=== PATIENT | female | born 2000 | race Caucasian/White ===

== ENCOUNTER 2023-11-04 21:45 | Emergency (ER) | payer OTHER, SELFPAY ==
[2023-11-04 21:50] VITALS: BP 117/80
[2023-11-04 22:33] LABS: COVID-19 Antigen Negative (Negative)
--- NOTE | 2023-11-05 01:06 | ED.GENMED ---
History of Present Illness
General
Chief Complaint: Eye Problems
Source: patient
Exam Limitations: none
Time Seen by Provider: 11/05/23 00:52
Travel History
Have you had any contact with someone who has COVID-19?: No
Do you have any symptoms of coronavirus? Fever > 100 degrees, chills, cough, shortness of breath, sore throat, loss of taste or smell, muscle aches, or headache?: No
History of Present Illness
History of Present Illness:
This is a 22 year old female that comes in with c/o sore throat and left eye redness. States that she started on Saturday with pink eye. States that she was given Polymyxin B-TMP eye drops. States that she has been using them for 2 days and it is
not helping. States that she also has a sore throat and feels like she is swallowing rocks. The sore throat started yesterday. States that she was also nauseated on Saturday. Denies any fever, chills, chest pain, SOB, abd pain, vomiting, diarrhea,
headache, dizziness, urinary burning.
Past History
Past History
ED Past Medical History: Asthma, Psychiatric (Anxiety, Depression. OCD, PTSD) and Other (IBS)
ED Past Surgical History: None
Social History
Tobacco: Non-smoker
Alcohol: None
Personal: Single
Living: with family
Review of Systems
Review of Systems
All Other Systems: ROS reviewed and negative except as documented in HPI and ROS
Constitutional: Reports no symptoms; Denies fever or chills
EENT: Reports sore throat and other (Left eye drainage and redness)
Respiratory: Reports no symptoms; Denies cough or trouble breathing
Cardiac: Reports no symptoms; Denies chest pain
ABD/GI: Reports no symptoms; Denies abdominal pain, nausea, vomiting or diarrhea
: Reports no symptoms; Denies dysuria, frequency or urgency
Musculoskeletal: Reports no symptoms
Skin: Reports no symptoms
Neurological: Reports no symptoms; Denies dizzy or headache
Psychiatric: Reports no symptoms
Phy Exam
General Physical Exam
General Presentation: no apparent distress
General age: appears stated age
General Skin: warm and dry
General Habitus: normal
General Mental: alert
General Hydration: appears well hydrated
ENT Exam
ENT Exam: TM's normal, pharynx normal (Negative for any redness or exudate) and neck supple
Eye Exam
Eye Exam: EOMI and other (Left sclera redness with drainage)
Cardiovascular Exam
Cardiovascular Exam: regular rate/rhythm, no murmur and normal peripheral pulses
Pulmonary Exam
Pulmonary Exam: lungs clear, no respiratory distress, no rales, chest non tender, no crackles, no rhonchi, no wheezing and no cough
Gastrointestinal Exam
Gastrointestinal Exam: normal bowel sounds, non tender, soft, no organomegaly, no pulsatile mass and non distended
Musculoskeletal Exam
Musculoskeletal Exam: full ROM and no edema
Skin Exam
Skin Exam: normal color, warm/dry, no rash and no petechia
Psychiatric Exam
Psychiatric Exam: normal mood/affect
Course
Orders/Labs/Results
Orders:
Orders
11/04/23 21:56
Rapid Strep Group A Urgent
[facility] Source: Throat/Pharynx
Specimen Description:
Date Specimen was Collected: 11/04/23
Time Specimen was Collected: 21:53
Throat Culture [Throat Culture, Comprehensive] Urgent
[facility] Source: Throat/Pharynx
Specimen Description:
Date Specimen was Collected: 11/04/23
Time Specimen was Collected: 21:53
11/04/23 21:57
COVID-19 Antigen Urgent
Source: Nasal Swab
11/04/23 21:58
Influenza A+B Rapid Molecular Urgent
[facility] Source: Nasal Swab
Specimen Description:
11/05/23 01:18
Gentamicin [Genoptic 0.3% Eye Drops] See Dose Instructions OPHTH NOW STA
COVID and influenza negative. Rapid strep negative.
Vital Signs
Initial and Last Documented VS:
Initial Vital Signs
Temp Pulse Resp BP Pulse Ox
98.3 F 99 18 117/80 99
11/04/23 21:50 11/04/23 21:50 11/04/23 21:50 11/04/23 21:50 11/04/23 21:50
Last Documented Vital Signs
Temp Pulse Resp BP Pulse Ox
98.3 F 99 18 117/80 99
11/04/23 21:50 11/04/23 21:50 11/04/23 21:50 11/04/23 21:50 11/04/23 21:50
MDM/Problems Addressed
Differential Diagnosis Includes:
Conjunctivitis. Strep throat. Viral syndrome
MDM/Problems Addressed:
This is a 22 year old female that comes in with c/o sore throat and left eye redness. States that she has been using Polymyxin B/TMP eye drops [id number] and her eye is not getting any better. States that she also has a sore throat.
Will get COVID, Influenza and rapid strep.
Chronic conditions affecting care:
NA
Acute Exacerbation and/or Progression of Chronic Illness:
NA
*Pulse Oximetry
Patient hypoxic: no
*EKG
Interpreted by ED Provider?: NA
Rate: EKG- N/A
*Nursery Technician Interpretation
Rate: Nursery Technician- N/A
*Critical Care Note
Total Time (30-74mins, 75-104mins- exclusive of procedures): Not Applicable
ED Attending Note
-
Portions of this chart may have been created with voice recognition software.� Occasional wrong word or��sound alike� substitutions may have occurred due to the inherent limitations of voice recognition software.
Discharge Plan
Departure
Patient Disposition: Home (Routine Discharge)
Date of Disposition: 11/05/23
Time of Disposition: 01:25
Patient with high blood pressure during this ER visit?: No
Condition: Good
Covid-19: Negative COVID-19
Discharge Problem:
Conjunctivitis, Acute sore throat
Instructions: Sore Throat, Adult (DC), Conjunctivitis (Pinkeye) (DC)
Prescriptions:
New
gentamicin 0.3 % drops
2 drp ophthalmic (eye) Q4H Qty: 10 0RF
Referrals:
Regine Subramanian CRNP [Family Provider] -
Activity Restrictions/Additional Instructions:
As discussed, you are COVID, Influenza and your rapid strep are all negative. This is most likely a viral illness. You have been given a new Prescription for your Conjunctivitis. Please use as directed. Follow up with your eye doctor for further
evaluation. Please keep the eye clean with warm water. You may also gargle with warm salt water to help with the sore throat. Tylenol 650mg every 4 hours and Ibuprofen 600mg every 6 hours with food. IF YOU HAVE ANY OTHER CONCERNS PLEASE RETURN TO
THE EMERGENCY ROOM.
Interventions
Interventions:
*Risk Screen - Suicide Last Done: 11/04/23 21:50
*General Assessment Last Done: 11/04/23 21:50
[2023-11-05] MEDS: GENOPTIC 0.3% EYE DROPS 2 DROP OPHTH (01:23)
== END 2023-11-05 01:39 | disposition home or self-care (01) ==
LOC: EMR 21:45
PROVIDERS: Emergency Medicine; EMERGENCY PHYSICIAN Emergency Medicine; FAMILY PHYSICIAN Nurse Practitioner Family
DX: H10.32 Unspecified acute conjunctivitis, left eye (principal); J02.9 Acute pharyngitis, unspecified; R11.0 Nausea; Z11.52 Encounter for screening for COVID-19; F41.9 Anxiety disorder, unspecified; F32.A Depression, unspecified; J45.909 Unspecified asthma, uncomplicated; F42.9 Obsessive-compulsive disorder, unspecified; K58.9 Irritable bowel syndrome, unspecified; F43.10 Post-traumatic stress disorder, unspecified; Z91.048 Other nonmedicinal substance allergy status
CPT/HCPCS: 99283; 87070; 87502; 87811; 87880

== ENCOUNTER → 2024-12-10 12:49 | Outpatient (REF) | payer OTHER, SELFPAY | LOC: HWRAD 12:49 | PROVIDERS: ATTENDING PHYSICIAN Otolaryngology Facial Plastic Surgery; FAMILY PHYSICIAN Nurse Practitioner Family | DX: J32.0 Chronic maxillary sinusitis (principal); R51.9 Headache, unspecified | CPT/HCPCS: 70486 ==